=== PATIENT | male | born 1975 | race Caucasian/White ===

== ENCOUNTER 2018-09-11 09:43 | Emergency (ER) | payer BC ==
[~2018-09-11] VITALS: Ht 185.4 cm; Wt 95.3 kg
[2018-09-11 09:50] VITALS: BP_SYST 152
--- NOTE | 2018-09-11 09:55 | NUR ---
Patient to ER bed 3 to gown for evaluation. Side rails up. Report given to Stephen BENTON.
[2018-09-11] MEDS ORDERED: FLUORESCEIN SODIUM 1 MG OPHTHALMIC STRIP OP ONE (10:00)
[2018-09-11] MEDS ORDERED: PROPARACAINE (OPTHANINE 0.5%) 15 ML DROPS OP ONE (10:00)
--- NOTE | 2018-09-11 10:00 | NUR ---
Patient Presented to ER with C/O right eye watery discharge pain, blurred vision. Patient A&Ox4, skin pink, afebrile, respirations equal bilat, pain 3/10, right eye visible red, irritated denies N/V. 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 Pain & irritation started yesterday evening. Patient denies other health history.
--- NOTE | 2018-09-11 10:11 | NUR ---
ER Dr. Devlin at bedside examining patient.
--- NOTE | 2018-09-11 10:27 | NUR ---
CALLING DR. BO YUSUF PER DR. SCHMIDT TO SPEAK TO HIM REGARDING A PT.
[2018-09-11] MEDS ORDERED: DIPH-TET-PERTUS Vaccine 0.5 ML VIAL (ADACEL) I.M. ONE (11:00)
[2018-09-11 11:15] VITALS: BP_SYST 152
--- NOTE | 2018-09-11 11:15 | NUR ---
Patient given written and verbal discharge instructions and verbalizes understanding. ER MD discussed with patient the results and treatment provided. Patient in stable condition. ID arm band removed. IV catheter removed intact and dressing applied, no active bleeding. Rx of Gentamicin & [place] given. Patient educated on pain management and to follow up with PMD. Pain Scale 2/10 tolerable for pt . Opportunity for questions provided and answered. Medication side effect fact sheet provided.
== END 2018-09-11 11:15 | disposition home or self-care (01) ==
LOC: SED 09:43
DX: T15.01XA Foreign body in cornea, right eye, initial encounter (principal); W45.8XXA Other foreign body or object entering through skin, initial encounter; Y93.89 Activity, other specified; Y92.89 Other specified places as the place of occurrence of the external cause; Y99.8 Other external cause status
CPT/HCPCS: 90715; 99284